=== PATIENT | female | born 1990 | race Caucasian/White ===

== ENCOUNTER 2019-06-04 08:00 | Outpatient (CLI) | payer MEDICAID | END 2019-06-04 23:59 | disposition home or self-care (01) | LOC: LAB.R 08:00 | PROVIDERS: ATTEND Obstetrics & Gynecology | DX: R10.2 Pelvic and perineal pain (principal) | CPT/HCPCS: 87086 ==

== ENCOUNTER 2019-06-28 14:25 | Outpatient (CLI) | payer MEDICAID ==
--- NOTE | 2019-07-01 10:22 | Ultrasound Report ---
Reason: PELVIC PAIN, FEMALE Procedure Date: 06/28/2019 Accession Number: [id number] / [id number] Procedure: US - Pelvic w/Transvaginal CPT Code: FULL RESULT: EXAM: PELVIC ULTRASOUND EXAM DATE: 06/28/2019 04:31 PM. CLINICAL HISTORY: PELVIC PAIN, IUD COMPARISON: None. TECHNIQUE: Realtime transabdominal pelvic scan performed to identify the uterus and adnexa and as an overview of other pelvic structures, followed by transvaginal scan to provide greater detail of the uterus and adnexa, with static image documentation. FINDINGS: Uterus: 8.6 x 3 x 5 cm, volume 67 cc. Anteverted position. Normal overall size and echotexture. Question bicornuate configuration. Masses: None. Endometrium: [address] A few microcalcifications are noted. Cervix: Unremarkable. Right Ovary: 2.8 x 1.6 x 1.9 cm, volume 4.4 cc. Normal echotexture and blood flow. Left Ovary: 3.1 x 2 x 2.1 cm, volume 6.8 cc. Normal echotexture and blood flow. Physiologic cyst 1.6 x 1.4 x 1.4 Free Fluid: Small amount. Other: None. IMPRESSION: Normal pelvic ultrasound with IUD in place. [facility]
== END 2019-06-28 14:26 | disposition home or self-care (01) ==
LOC: DI 14:25
PROVIDERS: ATTEND Obstetrics & Gynecology
DX: R10.2 Pelvic and perineal pain (principal); Z97.5 Presence of (intrauterine) contraceptive device
CPT/HCPCS: 76830; 76856

== ENCOUNTER 2019-08-23 10:42 | Outpatient (CLI) | payer MEDICAID ==
[2019-08-23] MEDS ORDERED: IOVERSOL 320 100 ML VIAL IVP ONE ×3 (11:00→14:05)
[2019-08-23] MEDS ORDERED: IOVERSOL 320 50 ML VIAL ONE (11:00)
[2019-08-23] MEDS ORDERED: IOVERSOL 320 50 ML VIAL PO ONE (14:07)
--- NOTE | 2019-08-23 22:50 | CT Report ---
Reason: LOWER ABD PAIN Procedure Date: 08/23/2019 Accession Number: [id number] / [id number] Procedure: CT - Abdomen/Pelvis W CPT Code: Final Report FULL RESULT: EXAM: CT ABDOMEN AND PELVIS EXAM DATE: 08/23/2019 12:06 PM. CLINICAL HISTORY: LOWER ABD PAIN. COMPARISONS: None. TECHNIQUE: Routine helical CT imaging was performed through the abdomen and pelvis. IV contrast: OPTI 320 90ML. Enteric contrast: Yes. Reconstructions: Coronal and sagittal. In accordance with CT protocol optimization, one or more of the following dose reduction techniques were utilized for this exam: automated exposure control, adjustment of mA and/or KV based on patient size, or use of iterative reconstructive technique. FINDINGS: ABDOMEN: Lung Bases: Incompletely included lower lungs are grossly clear. Heart size is within normal limits. No basilar effusions. Liver: Unremarkable. Spleen: Unremarkable. Pancreas: Unremarkable. Gallbladder/Bile Ducts: Gallbladder is unremarkable. Biliary tree is normal caliber. Adrenal Glands: Unremarkable. Kidneys: No mass, calculi, or hydronephrosis. Peritoneum/Mesentery/Bowel: No free fluid, free air, or collection. No intestinal obstruction or inflammation. The appendix is within normal limits. Lymph nodes: No mesenteric, periportal, or retroperitoneal lymphadenopathy. Vasculature: Abdominal aorta is nonaneurysmal. Portal vein is patent. Hepatic veins are patent. PELVIS: The bladder is unremarkable for the degree of distention. IUD is present within the uterus. Bilateral ovaries are present. No obvious abnormally enlarged adnexal abnormalities. No pelvic lymphadenopathy. Bones: No suspicious osseous lesions. IMPRESSION: No acute abnormalities. [facility]
== END 2019-08-23 10:43 | disposition home or self-care (01) ==
LOC: DI 10:42
PROVIDERS: ATTEND Physician Assistant
DX: R10.30 Lower abdominal pain, unspecified (principal)
CPT/HCPCS: 74177; Q9967

== ENCOUNTER 2019-10-07 11:57 | Emergency (ER) | payer MEDICAID ==
[2019-10-07 14:30] VITALS: BP 104/61
[2019-10-07] MEDS ORDERED: IPRATROPIUM/ALBUTEROL 3 ML NEB INH STA (14:48)
[2019-10-07] MEDS ORDERED: BENZONATATE 100 MG CAPSULE PO STA (14:48)
--- NOTE | 2019-10-07 14:52 | ED Physician Documentation ---
PD HPI URI - Stated complaint Stated Complaint: COUGH X3 DAYS, CHEST PAIN - Chief complaint Chief Complaint: Resp - History obtained from History obtained from: Patient - History of Present Illness Timing - onset: How many days ago (4) Timing duration: Days (4) Timing details: Gradual onset Pain level max: 3 Pain level now: 2 Associated symptoms: Fever, Nasal congestion, Rhinorrhea, Dry cough, Dyspnea (wheezing, used to use inhalers). No: Sore throat Contributing factors: Sick contact Improves by: Rest Worsened by: Activity, Breathing Recently seen: Not recently seen Review of Systems Constitutional: reports: Fever Nose: reports: Rhinorrhea / runny nose, Congestion GI: denies: Vomiting, Diarrhea : denies: Now EGA Skin: denies: Rash PD PAST MEDICAL HISTORY - Past Medical History Past Medical History: No - Past Surgical History Past Surgical History: No - Present Medications Home Medications: Ambulatory Orders Medication Instructions Recorded Confirmed Albuterol Sulf [Ventolin Hfa 1 - 2 puffs INH Q4HR PRN #1 inhaler 10/07/19 Inhaler] Benzonatate [Tessalon Perle] 100 - 200 mg PO TID PRN #30 capsule 10/07/19 - Allergies Allergies/Adverse Reactions: Allergies Allergy/AdvReac Type Severity Reaction Status Date / Time No Known Drug Allergies Allergy Verified 10/07/19 12:04 - Living Situation Living Situation: reports: With family Living Arrangement: reports: At home - Social History Does the pt smoke?: Yes Smoking Status: Current every day smoker - Family History Family history: reports: Non contributory PD ED PE NORMAL - Vitals Vital signs reviewed: Yes - General General: Alert and oriented X 3, No acute distress, Well developed/nourished - HEENT HEENT: PERRL, Ears normal, Moist mucous membranes, Pharynx benign - Neck Neck: Supple, no meningeal sign, No adenopathy - Cardiac Cardiac: RRR, Strong equal pulses - Respiratory Respiratory: No respiratory distress, Other (Diminished breath sounds bilaterally with wheezing) - Abdomen Abdomen: Soft, Non tender, Non distended - Derm Derm: Warm and dry - Neuro Neuro: Alert and oriented X 3 - Psych Psych: Normal mood, Normal affect Results - Vitals Vitals: Vital Signs - 24 hr 10/07/19 10/07/19 12:04 14:29 Temperature 36.8 C 37.1 C Heart Rate 81 75 Respiratory 16 18 Rate Blood Pressure 113/68 104/61 O2 Saturation 98 98 Oxygen O2 Source Room air - Labs Labs: Laboratory Tests 10/07/19 12:08 Influenza A (Rapid) Negative Influenza B (Rapid) Negative PD MEDICAL DECISION MAKING - ED course Complexity details: reviewed results, re-evaluated patient, considered differential, d/w patient ED course: Patient is well-appearing, nontoxic. Afebrile. No hypoxia. No respiratory distress. Feels better after nebulizer treatment. Influenza swab is negative. We will prescribe an inhaler for home and have her follow-up with her doctor. No evidence of pneumonia clinically. Patient counseled regarding signs and symptoms for which I believe and urgent re-evaluation would be necessary. Patient with good understanding of and agreement to plan and is comfortable geno g home at this time This document was made in part using voice recognition software. While efforts are made to proofread this document, sound alike and grammatical errors may occur. Departure - Departure Disposition: 01 Home, Self Care Clinical Impression: Upper respiratory tract infection Qualifiers: URI type: unspecified viral URI Qualified Code(s): J06.9 - Acute upper respiratory infection, unspecified Condition: Good Instructions: ED URI Viral Follow-Up: CESIA SHERMAN DO [Primary Care Provider] - Within 1 week Prescriptions: Albuterol Sulf [Ventolin Hfa Inhaler] 1 - 2 puffs INH Q4HR PRN #1 inhaler PRN Reason: Shortness Of Air/Wheezing Benzonatate [Tessalon Perle] 100 - 200 mg PO TID PRN #30 capsule PRN Reason: Cough Comments: Use the inhaler as prescribed. Your influenza swab was negative. There is no sign of pneumonia. Return if you worsen. This cough will likely last another 1 to 2 weeks.
== END 2019-10-07 15:17 | disposition home or self-care (01) ==
LOC: ED 11:57
DX: J06.9 Acute upper respiratory infection, unspecified (principal); F17.200 Nicotine dependence, unspecified, uncomplicated
CPT/HCPCS: 87275; 87276; 94640; 94664; 99283; 99284; A9270

== ENCOUNTER 2019-12-04 09:30 | Emergency (ER) | payer MEDICAID ==
--- NOTE | 2019-12-04 11:45 | ED Physician Documentation ---
PD HPI HEAD INJURY - Stated complaint Stated Complaint: HEAD INJ/DIZZINESS - Chief complaint Chief Complaint: Trauma Hd/Nk - History obtained from History obtained from: Patient - History of Present Illness Mechanism of head injury: Fell Where head injury occurred: Work Timing - onset: How many days ago (3) Location of injury: Front, Top Quality of pain: Pain, Throbbing Associated symptoms: Nausea / vomiting, Other (Dizziness trouble concentrating and memory loss). No: LOC, AMS, Amnesia, Paresthesias, Seizures, Ear drainage, Nasal drainage Symptoms improve with: Rest Symptoms worsen with: Palpation, Movement Contributing factors: No: Anticoagulated Similar symptoms before: Has not had sx before Recently seen: Not recently seen - Additional information Additional information: 29-year-old female was up on a ladder she fell striking her head on the way down she did not have loss of consciousness she has a headache to the top of her head she has had some trouble concentrating she has had some dizziness she has had some short-term memory loss she has had some nausea she is not had vomiting. She has not had a head injury previously. Review of Systems Constitutional: denies: Fever, Chills, Myalgias Eyes: denies: Decreased vision Ears: denies: Ear pain Nose: denies: Rhinorrhea / runny nose, Congestion Throat: denies: Sore throat Cardiac: denies: Chest pain / pressure, Palpitations Respiratory: reports: Cough. denies: Dyspnea GI: reports: Nausea. 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 : None HEENT: None Psych: Depression Musculoskeletal: Fibromyalgia Derm: None Other Past Medical History: IBD - Past Surgical History Past Surgical History: No - Present Medications Home Medications: Ambulatory Orders Medication Instructions Recorded Confirmed Acetaminophen [Tylenol] 650 mg PO Q6HR PRN 12/04/19 12/04/19 Cyclobenzaprine [Flexeril] 5 - 10 mg PO TID PRN 12/04/19 12/04/19 oxyCODONE/ACET 5/325 [Percocet 5 1 each PO BID PRN 12/04/19 12/04/19 mg/325 mg] - Allergies Allergies/Adverse Reactions: Allergies Allergy/AdvReac Type Severity Reaction Status Date / Time No Known Drug Allergies Allergy Verified 12/04/19 09:53 - Social History Does the pt smoke?: Yes Smoking Status: Current every day smoker Does the pt drink ETOH?: Yes Does the pt have substance abuse?: No - Immunizations Immunizations are current?: No - POLST Patient has POLST: No PD ED PE NORMAL - Vitals Vital signs reviewed: Yes (tachy ) - General General: Alert and oriented X 3, No acute distress, Well developed/nourished - HEENT HEENT: Atraumatic, PERRL, EOMI, Pharynx benign, Other (There is mild central erythema to the right TM only ) - Neck Neck: Supple, no meningeal sign, No bony TTP - Cardiac Cardiac: RRR, No murmur - Respiratory Respiratory: No respiratory distress, Clear bilaterally - Abdomen Abdomen: Soft, Non tender - Back Back: No CVA TTP, No spinal TTP - Derm Derm: Normal color, Warm and dry, No rash - Extremities Extremities: No deformity, No edema, No calf tenderness / cord - Neuro Neuro: Alert and oriented X 3, consultant 2-12 intact, No motor deficit, No sensory deficit, Normal speech Eye Opening: Spontaneous Motor: Obeys Commands Verbal: Oriented GCS Score: 15 - Psych Psych: Normal mood, Normal affect Results - Vitals Vitals: Vital Signs - 24 hr 12/04/19 12/04/19 09:48 10:24 Temperature 37.2 C 37 C Heart Rate 110 H 80 Respiratory 17 16 Rate Blood Pressure 126/65 111/72 O2 Saturation 99 99 Oxygen O2 Source Room air - Rads (name of study) CT head Radiology: Prelim report reviewed (Impression: No acute intracranial abnormality.), EMP read indepedently, See rad report Departure - Departure Disposition: 01 Home, Self Care Clinical Impression: Concussion Qualifiers: Encounter type: initial encounter Loss of consciousness presence/duration: without LOC Qualified Code(s): S06.0X0A - Concussion without loss of consciousness, initial encounter Condition: Stable Instructions: ED Concussion Follow-Up: CESIA SHERMAN DO [Primary Care Provider] - Forms: Activity restrictions
--- NOTE | 2019-12-04 12:40 | CT Report ---
Reason: concussion Procedure Date: 12/04/2019 Accession Number: [id number] / [id number] Procedure: CT - HEAD WO CPT Code: Final Report FULL RESULT: EXAM: CT HEAD EXAM DATE: 12/04/2019 12:08 PM. CLINICAL HISTORY: Concussion. COMPARISON: None. TECHNIQUE: Multiaxial CT images were obtained from the foramen magnum to the vertex. Reformats: Sagittal and coronal. IV contrast: None. In accordance with CT protocol optimization, one or more of the following dose reduction techniques were utilized for this exam: automated exposure control, adjustment of mA and/or KV based on patient size, or use of iterative reconstructive technique. FINDINGS: Parenchyma: No intraparenchymal hemorrhage. No evidence of mass, midline shift, or CT findings of infarction. Stevens-white differentiation is distinct. Extraaxial Spaces: Normal for age. No subdural or epidural collections identified. Ventricles: Normal in size and position. Sinuses and Orbits: Imaged paranasal sinuses, orbits, and mastoids show no significant abnormality. Bones: No evidence of fracture or calvarial defect. Other: None. IMPRESSION: No acute intracranial abnormality. [facility]
[2019-12-04 13:19] VITALS: BP 120/84
== END 2019-12-04 13:18 | disposition home or self-care (01) ==
LOC: ED 09:30
DX: S06.0X0A Concussion without loss of consciousness, initial encounter (principal); W11.XXXA Fall on and from ladder, initial encounter; Y92.89 Other specified places as the place of occurrence of the external cause; Y99.0 Civilian activity done for income or pay; F17.200 Nicotine dependence, unspecified, uncomplicated
CPT/HCPCS: 70450; 99284

== ENCOUNTER 2019-12-11 20:00 | Emergency (ER) | payer MEDICAID ==
[2019-12-11] MEDS ORDERED: SUMAtriptan 6 MG/0.5 ML VIAL SUBQ STA (20:42)
--- NOTE | 2019-12-11 20:59 | CT Report ---
Reason: head injury 1 week ago, worsening headache Procedure Date: 12/11/2019 Accession Number: [id number] / [id number] Procedure: CT - HEAD WO CPT Code: Final Report FULL RESULT: EXAM: CT HEAD EXAM DATE: 12/11/2019 08:38 PM. CLINICAL HISTORY: Head injury 1 week ago, worsening headache. COMPARISON: HEAD W/O 12/04/2019 12:07 PM. TECHNIQUE: Multiaxial CT images were obtained from the foramen magnum to the vertex. Reformats: Sagittal and coronal. IV contrast: None. In accordance with CT protocol optimization, one or more of the following dose reduction techniques were utilized for this exam: automated exposure control, adjustment of mA and/or KV based on patient size, or use of iterative reconstructive technique. FINDINGS: Parenchyma: No intraparenchymal hemorrhage. No evidence of mass, midline shift, or CT findings of infarction. Stevens-white differentiation is distinct. Extraaxial Spaces: Normal for age. No subdural or epidural collections identified. Ventricles: Normal in size and position. Sinuses and Orbits: Imaged paranasal sinuses, orbits, and mastoids show no significant abnormality. Bones: No evidence of fracture or calvarial defect. Other: None. IMPRESSION: Normal head CT. [facility]
--- NOTE | 2019-12-11 21:03 | ED Physician Documentation ---
History of Present Illness - Stated complaint Stated Complaint: HEAD INJ/HEADACHES/DIZZY - Chief complaint Chief Complaint: Heent - History obtained from History obtained from: Patient, Family - History of Present Illness Pain level max: 7 Pain level now: 6 - Additonal information Additional information: 29-year-old female states that she fell off a ladder a week ago, falling backwards and striking her head on a steel shelf, she then hit the ground. Was seen here after this and had a negative head CT. She states that her symptoms improved and then 2 to 3 days ago began to have dizziness and recurrent headaches. Worse with movement, light and sound. Nothing makes it better. No neck or back pain. No focal neurological deficits. 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 : None HEENT: None Psych: Depression Musculoskeletal: Fibromyalgia Derm: None - Past Surgical History Past Surgical History: No - Present Medications Home Medications: Ambulatory Orders Medication Instructions Recorded Confirmed Acetaminophen [Tylenol] 650 mg PO Q6HR PRN 12/04/19 12/04/19 Cyclobenzaprine [Flexeril] 5 - 10 mg PO TID PRN 12/04/19 12/04/19 oxyCODONE/ACET 5/325 [Percocet 5 1 each PO BID PRN 12/04/19 12/04/19 mg/325 mg] Butalb/Acetaminophen/Caffeine 1 cap PO Q6H PRN #10 capsule 12/11/19 [Fioricet 50-300-40 mg Capsule] Ondansetron Odt [Zofran] 4 mg TL Q6H PRN #10 tablet 12/11/19 - Allergies Allergies/Adverse Reactions: Allergies Allergy/AdvReac Type Severity Reaction Status Date / Time No Known Drug Allergies Allergy Verified 12/11/19 20:12 - Social History Does the pt smoke?: Yes Smoking Status: Current every day smoker Does the pt drink ETOH?: Yes Does the pt have substance abuse?: No - Immunizations Immunizations are current?: No - POLST Patient has POLST: No PD ED PE NORMAL - Vitals Vital signs reviewed: Yes - General General: Alert and oriented X 3, No acute distress - HEENT HEENT: PERRL, Ears normal, Moist mucous membranes, Pharynx benign - Neck Neck: Supple, no meningeal sign - Cardiac Cardiac: RRR, Strong equal pulses - Respiratory Respiratory: No respiratory distress, Clear bilaterally - Abdomen Abdomen: Soft, Non tender, Non distended - Back Back: No spinal TTP - Derm Derm: Warm and dry - Neuro Neuro: Alert and oriented X 3, cone examiner 2-12 intact, No motor deficit, No sensory deficit, Normal speech Eye Opening: Spontaneous Motor: Obeys Commands Verbal: Oriented GCS Score: 15 - Psych Psych: Normal mood, Normal affect Results - Vitals Vitals: Vital Signs - 24 hr 12/11/19 12/11/19 12/11/19 20:10 20:22 21:06 Temperature 36.9 C Heart Rate 71 Respiratory 17 16 16 Rate Blood Pressure 132/78 H O2 Saturation 100 Oxygen O2 Source Room air - Rads (name of study) Head CT Radiology: Prelim report reviewed, EMP read contemporaneously, See rad report (No acute abnormality) PD MEDICAL DECISION MAKING - ED course Complexity details: re-evaluated patient, considered differential, d/w patient, d/w family ED course: Patient with continued headaches consistent with postconcussive headaches. As she had improved and began worsening again, we discussed a repeat head CT and she is elected to have this. There are no acute findings on repeat head CT. Given Imitrex and headache improved. We will continue supportive care at home. We will have her follow-up with her doctor for further care. Patient counseled regarding signs and symptoms for which I believe and urgent re-evaluation would be necessary. Patient with good understanding of and agreement to plan and is comfortable going home at this time This document was made in part using voice recognition software. While efforts are made to proofread this document, sound alike and grammatical errors may occur. Departure - Departure Disposition: 01 Home, Self Care Clinical Impression: Post-concussion headache Condition: Good Instructions: TBI Headaches, ED Concussion Follow-Up: CESIA SHERMAN DO [Primary Care Provider] - Within 1 week Prescriptions: Butalb/Acetaminophen/Caffeine [Fioricet 50-300-40 mg Capsule] 1 cap PO Q6H PRN #10 capsule PRN Reason: headache Ondansetron Odt [Zofran] 4 mg TL Q6H PRN #10 tablet PRN Reason: Nausea / Vomiting Comments: Thankfully there are no changes on your CAT scan tonight. Return if you worsen. Follow-up with your doctor for further care. The headaches may come and go for several weeks. If you are developing headaches or dizziness, stop what you are doing and lie down.
[2019-12-11] MEDS ORDERED: ONDANSETRON ODT 4 MG TABLET TL STA (21:16)
[2019-12-11 21:29] VITALS: BP 116/75
== END 2019-12-11 21:29 | disposition home or self-care (01) ==
LOC: ED 20:00
DX: G44.309 Post-traumatic headache, unspecified, not intractable (principal); F07.81 Postconcussional syndrome; F17.200 Nicotine dependence, unspecified, uncomplicated
CPT/HCPCS: 70450; 99284; Q0162